=== PATIENT | male | born 1975 | race Two or more races ===

== ENCOUNTER 2016-10-27 15:38 | Emergency (ER) | payer OTHER ==
[~2016-10-27] VITALS: Ht 177.8 cm; Wt 86.2 kg
[2016-10-27 17:00] VITALS: BP 110/75
[2016-10-27] MEDS ORDERED: CEPHALEXIN500 MG ORAL (17:12)
[2016-10-27] MEDS ORDERED: Bacitracin Oint UD TOPIC ONE (17:15)
[2016-10-27 17:20] VITALS: BP 110/75
--- NOTE | 2016-10-28 12:30 | Emergency Room Report ---
History of Present Illness General Chief Complaint: Laceration Source: Patient Present Illness HPI The patient is a 41-year-old male presenting for left finger laceration which occurred yesterday. 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 The patient denies any pain at this time. The patient states that he has controlled the bleeding with compression. Patient washed the wound out with soap and water. The patient states that his last tetanus shot was 2 years prior. The patient denies any other symptoms and denies numbness or tingling of the finger Allergies: Coded Allergies: No Known Allergies (Unverified , 10/27/16) Patient History Past Medical History: see triage record Pertinent Family History: none Reviewed Nursing Documentation: PMH: Agreed, PSxH: Agreed Nursing Documentation-PMH Past Medical History: No Stated History Review of Systems All Other Systems: negative except mentioned in HPI Physical Exam Vital Signs Date Time Temp Pulse Resp B/P Pulse Ox O2 Delivery O2 Flow Rate FiO2 10/27/16 16:19 97.9 65 14 105/71 98 Room Air Sp02 EP Interpretation: reviewed, normal General Appearance: no apparent distress, alert, GCS 15, non-toxic Head: normocephalic, atraumatic Eyes: bilateral eye PERRL, bilateral eye normal inspection Musculoskeletal: back normal, gait/station normal, normal range of motion, tender - L distal 5th finger Neurologic: alert, oriented x3, responsive, motor strength/tone normal, sensory intact, speech normal Psychiatric: judgement/insight normal, memory normal, mood/affect normal, no suicidal/homicidal ideation Skin: well hydrated, normal turgor, laceration - 1cm skin avulsion to L 5th distal phalynx Lymphatic: no adenopathy Medical Decision Making PA Attestation Dr. Tate is my supervising physician. Patient management was discussed with my supervising physician Diagnostic Impression: Primary Impression: Laceration ER Course The patient is a 41-year-old male presenting for left finger laceration. Ddx considered include but not limited to fracture, tendon/ligament injury, avulsion, nerve damage PE: Vitals within normal limits. No apparent distress. There is a 1 cm skin avulsion to the left distal fifth digit. No bleeding. Sensation intact. Full active range of motion. The wound is thoroughly cleaned with normal saline and Betadine. Bacitracin was placed with a sterile dressing. The patient is discharged home with a prescription for Keflex and will follow up with primary care doctor. ER precautions are given Last Vital Signs Date Time Temp Pulse Resp B/P Pulse Ox O2 Delivery O2 Flow Rate FiO2 10/27/16 17:20 98.0 70 16 110/75 98 Room Air Status: improved Disposition: HOME, SELF-CARE Condition: Improved Scripts Cephalexin* (KEFLEX*) 500 Mg Capsule 500 MG ORAL EVERY 12 HOURS, #14 CAP 0 Refills Prov: CELINA ALDRIDGE 10/27/16 Referrals: NOT CHOSEN [facility]/,REFERRING (PCP) Patient Instructions: Nonsutured Laceration Care Additional Instructions: I discussed my findings with the patient. All questions and concerns have been answered. Treatment and medication compliance have been addressed. I advised the patient that they need to follow up with PMD in 3-5 days. Return to ED if symptoms worsen, new symptoms arise, or if needed for any reason. Patient verbalized understanding of discharge instructions. CELINA ALDRIDGE Oct 28, 2016 12:30
== END 2016-10-27 17:20 | disposition home or self-care (01) ==
LOC: EMR 17:20
DX: S61.217A Laceration without foreign body of left little finger without damage to nail, initial encounter (principal); W27.4XXA Contact with kitchen utensil, initial encounter; Y92.511 Restaurant or cafe as the place of occurrence of the external cause; Y99.0 Civilian activity done for income or pay
CPT/HCPCS: 99283